=== PATIENT | female | born 1975 | race Caucasian/White ===

== ENCOUNTER 2018-03-17 01:34 | Emergency (ER) | payer MEDICAID, SELFPAY ==
[2018-03-17 01:36] VITALS: BP 106/80; PULSE 122; RESP 16; TEMP 37.9; O2SAT 99; BMI 28.5
[2018-03-17 01:44] VITALS: RESP 16
--- NOTE | 2018-03-17 02:02 | CT_ITS ---
STUDY: CT ABDOMEN AND PELVIS WITH CONTRAST REASON FOR EXAM: Female, 42 years old. Nausea, vomiting, diarrhea, and pain RADIATION DOSAGE (If Supplied By Facility): CTDIvol = ( 12.2 ) mGy, DLP = ( 755.07 ) mGycm TECHNIQUE: Transaxial images were obtained from the dome of the diaphragm to the symphysis pubis with oral contrast. 100 ml of Isovue 300 contrast was administered. Sagittal and coronal images were reconstructed. Oral contrast is seen in the gastric lumen, however, no oral contrast is seen within small or large bowel loops.. Individualized dose optimization techniques were used for this CT. COMPARISON: None. FINDINGS: The visualized lung bases are unremarkable. The visualized portions of the heart are within normal limits. Normal liver. Normal gallbladder and extrahepatic biliary system. Normal spleen. Normal pancreas. Normal bilateral adrenal glands. Normal right kidney. Normal left kidney. Normal visualized stomach. There is mural thickening of loops of proximal jejunum, which may represent an infectious or inflammatory enteritis. There is also dilatation of some loops of jejunum, with diameters ranging up to 3.2 cm. There is no demonstrated transition point or decompression of distal small bowel to suggest mechanical obstruction. This may represent a localized ileus. Normal colon. The appendix is visualized on axial images 78-91 and it appears normal.. Normal abdominal aorta. Normal inferior vena cava. Normal retroperitoneum. Normal urinary bladder. There are varices in the pelvis bilaterally, however, there is no demonstrated gonadal vein reflux. There is no abnormal dilatation of the iliac veins. Normal abdominal wall. Normal osseous structures. CT/Abdomen/Pelvis WITH Contrast IMPRESSION: Mural thickening of loops of jejunum as well as distention of some jejunal loops suggests an infectious or inflammatory enteritis with overlying ileus. No evidence for mechanical bowel obstruction. No evidence for diverticulitis or appendicitis. Electronically Signed: Harry Sigala MD at 5:12 EST , Service support ,
--- NOTE | 2018-03-17 02:03 | ED.VISSUMM ---
- ER Visit Summary Date of Service: 03/17/18 Chief Complaint: Abdominal pain History of Present Illness: The patient is a 42 F presenting with abdominal pain. Patient states that this started around 7 PM. She has had nausea, vomiting, diarrhea. She denies blood in her stool or emesis. She has a history of Jaleel's disease and celiac disease. She denies possibility of bad food exposure. History of previous . She has had a subjective fever. Physical Examination: Vitals are stable. Temperature 100.3, heart rate 122 Alert no acute distress. HEENT exam dry mucous membranes Neck is supple. Lungs are clear and equal bilaterally. Heart is regular and tachycardic Abdomen is soft right lower quadrant tenderness with no rebound or guarding Extremities are unremarkable. Skin is warm and dry. No focal neurologic deficit. Remainder of exam is unremarkable. Emergency Department Course and Treatment: Patient was given IV fluids, morphine, Zofran. CBC shows white count 12.1, chemistries unremarkable other than BUN 23. Liver lipase are normal. Urinalysis unremarkable. CT abdomen pelvis shows mural thickening of loops of jejunum as well as distention of some jejunal loops suggests an infectious or inflammatory enteritis with overlying ileus. No evidence for mechanical bowel obstruction. No evidence for diverticulitis or appendicitis. On reevaluation, patient is feeling improved. She was given Tylenol for fever. She is able to tolerate p.o. in the emergency department. She was given prescription for Zofran. She is advised to follow-up with her primary care physician. Advised return to ED for worsening complaints. Disposition: Discharge home Impression: Vomiting and diarrhea This note was generated with [employer] dictation software. It may contain incorrect words, spelling, and punctuation that were not noted in review of the chart prior to signing ED Disposition - Plan for ED Patient: Chief Complaint: Nausea/Vomiting/Diarrhea Referrals: Noelle Leo MD [Primary Care Provider] -
[2018-03-17] MEDS: 0.9% Normal Saline 1,000 ML 1000 ML IV (02:25)
[2018-03-17] MEDS: Ondansetron 4 MG/2 ML Vial IV (02:25)
[2018-03-17] MEDS: Morphine 4 MG/ML Syringe IV (02:27)
[2018-03-17 02:36] LABS: Absolute Lymphocyte Count 0.49 X10^3/ul (0.83-4.51); Absolute Neutrophil Count 10.9 X10^3/uL (2.0-7.7); Basophil# 0.02 X10^3/uL; Basophil% 0.2 % (0-1); Eosinophil# 0.06 X10^3/uL; Eosinophils% 0.5 % (0-5); Hematocrit 42.4 % (37-47); Hemoglobin 14.1 g/dl (12.0-15.0); Lymphocyte # 0.49 X10^3/ul (4.0); Mean Corp Hgb Conc 33.3 g/gl (32-36); Mean Corpuscular Hgb 29.7 pg (27.0-32.0); Mean Corpuscular Volume 89.3 fL (81-99); Mean Platelet Vol. 11.1 fl (6.2-12.0); Monocyte# 0.66 X10^3/uL; Monocyte% 5.4 % (0-10); Neutrophil # 10.88 X10^3/uL (2.7-7.7); Neutrophil % 89.7 % (47-70); Platelet Count 291 K/mm3 (150-450); RBC Distribution Width CV 13.3 % (11.6-14.6); RBC Distribution Width SD 43.6 fl (35.1-43.9); Red Blood Count 4.75 M/mm3 (4.2-5.4); White Blood Count 12.1 K/mm3 (4.4-11.0)
[2018-03-17 02:37] LABS: Differential Indicated SCAN CRITERIA MET; POSITIVE COUNT NO; POSITIVE DIFFERENTIAL YES; POSITIVE MORPHOLOGY NO
[2018-03-17 02:47] LABS: AST(SGOT) 24 U/L (15-37); Alanine Aminotransfer ALT/SGPT 25 U/L (13-56); Albumin, Serum 3.9 g/dL (3.2-5.0); Alkaline Phosphatase 83 U/L (45-117); Anion Gap 11 (5-15); BUN 23 mg/dL (7-18); BUN/Creat Ratio 24.9 RATIO (10-20); Bilirubin, Direct 0.13 mg/dL (0.00-0.30); Calcium,Total 8.3 mg/dL (8.5-10.1); Chloride 102 mmol/L (98-107); Creatinine, Serum 0.92 mg/dL (0.55-1.02); EST Glomerular Filtration Rate 70 mL/min (>60); Est Glom Filt Rate - Afr Amer 85 mL/min (>60); Estimated Creatinine Clearance 56.05 ml/min; Globulin 3.4 g/dL (2.2-4.2); Glucose 103 mg/dL (74-106); Lipase 148 U/L (73-393); Potassium 3.5 mmol/L (3.5-5.1); Protein, Total 7.3 g/dL (6.4-8.2); Sodium Level 137 mmol/L (136-145)
--- NOTE | 2018-03-17 03:32 | ED.RN ---
PATIENT VOMITED LARGE AMOUNT OF CLEAR FLUID SHORTLY AFTER FINISHING CT DRINK. DR LYNN AWARE. OKAY TO CONTINUE WITH CT SCAN.
[2018-03-17 04:17] VITALS: BP 109/66; PULSE 102; RESP 16; O2SAT 96
[2018-03-17 04:19] LABS: Mucous, Urine 0 SEEN /hpf (<or=2+); White Blood Cells 0 SEEN /hpf (0-5)
[2018-03-17 04:35] LABS: Color, Urine Yellow (Yellow); Glucose, Dipstick Normal (Normal); Ketone-Dipstick Negative (Negative); Leukocyte Esterase-Dipstick Negative /ul (Negative); Nitrite-Dipstick Negative (Negative); Occult Blood-Urine 10 /ul (Negative); Protein-Dipstick Negative (Negative); Specific Gravity, Urine 1.015 (1.002-1.030); Urine Bilirubin Dipstick Negative (Negative); Urine Clarity Clear (Clear); Urine Urobilinogen Normal (Normal)
[2018-03-17 04:38] LABS: Bacteria RARE /hpf (None Seen); Red Blood Cells-Urine 0-5 SEEN /hpf (0-5); Squamous Epithelial Cells - UA 0-5 SEEN /hpf (5-10)
[2018-03-17 05:08] VITALS: BP 113/66; PULSE 107; RESP 15; TEMP 38.6; O2SAT 100
[2018-03-17] MEDS: 0.9% Normal Saline 1,000 ML 999 ML IV (05:15)
[2018-03-17] MEDS: Acetaminophen 500 MG Tablet 1000 MG PO (05:15)
[2018-03-17 06:37] VITALS: BP 110/65; PULSE 118; RESP 22; TEMP 37.9; O2SAT 98
--- NOTE | 2018-03-17 06:40 | ED.DEP ---
ED Disposition - Plan for ED Patient: Chief Complaint: Nausea/Vomiting/Diarrhea Instructions: ED Vomiting Diarrhea Nonspecific Ad Prescriptions: Ondansetron [Zofran Odt] 4 mg PO Q8H PRN PRN #10 tablet PRN Reason: Nausea Referrals: Noelle Leo MD [Primary Care Provider] -
== END 2018-03-17 07:38 | disposition home or self-care (01) ==
LOC: ED 02:29
PROVIDERS: Emergency Provider Emergency Medicine; Family Provider Internal Medicine; PCP Internal Medicine
DX: R11.2 Nausea with vomiting, unspecified (principal); R19.7 Diarrhea, unspecified; E27.1 Primary adrenocortical insufficiency; K90.0 Celiac disease; Z79.52 Long term (current) use of systemic steroids; Z79.899 Other long term (current) drug therapy
CPT/HCPCS: 74177; 80048; 80076; 81001; 83690; 85025; 96361; 96374; 96375; 99283; J7030; Q9967; A4216; J2405

== ENCOUNTER 2018-08-19 04:11 | Emergency (ER) | payer MEDICAID, SELFPAY ==
[2018-08-19 04:12] VITALS: BP 134/86; PULSE 92; RESP 16; TEMP 37.1; O2SAT 99; BMI 27.5
[2018-08-19] MEDS: Ketorolac 60 MG/2 ML Vial IM (04:24)
[2018-08-19] MEDS: morphine 8 MG/ML Syringe IM (04:25)
--- NOTE | 2018-08-19 04:26 | ED.DCSUM_ITS ---
History of Present Illness Chief Complaint: Other, Pain/Inj Informant: Patient, Significant Other Narrative: Stated she is having a radiculopathy in her neck. 2 days ago she slept on a pillow in a hotel and started having pain in the back of her neck radiating down the left side of her tricep. Occasionally she gets some tingling. She is never had this before. No injury. Movement related. Hurts to move her neck to the side. She is been using NSAIDs. She saw the chiropractor yesterday and had x- ray of her neck which she reported he stated she had beginning of degenerative disc disease. The patient stated there was no injury to her neck. She denies any anterior neck pain. It is difficult to get comfortable. Comes in for further treatment and evaluation. Past Medical History - Allergies and Home Meds Allergies/Adverse Reactions: Allergies CELIACS Adverse Reaction (Uncoded 08/19/18 04:18) Other Primary Care Physician: Noelle Leo MD [Primary Care Provider] - Prior records reviewed: Yes Past Medical History: - - Lakeland's disease Surgical History: - - Reviewed Lives: Spouse/ Significant Other Smoking Status: Never smoker Alcohol: None Drugs: None Review of Systems General: Denies: Chills, Fever, Sweats Eyes: Denies: Visual changes - bilaterally, Diplopia ENT: Denies: Rhinorrhea, Sore throat Cardiovascular: Denies: Chest pain, Palpitations Respiratory: Denies: Dyspnea, Cough, Dyspnea on exertion Gastrointestinal: Denies: Abdominal pain, Nausea, Vomiting, Diarrhea, Melena, Hematochezia Genitourinary: Denies: Dysuria, Hematuria, Frequency Musculoskeletal: Reports: Neck pain. Denies: Back pain, Extremity Pain Skin: Denies: Rash, Wounds Neurological: Reports: Parasthesia. Denies: Headache, Weakness, Numbness - Occasional paresthesia left tricep and arm Physical Exam Vital Signs/Narrative: Vital Signs Temp Pulse Resp BP Pulse Ox 08/19/18 04:12 98.8 F 92 16 134/86 H 99 General: Well nourished, Well developed, No Acute Distress Head: Normocephalic, Atraumatic Eyes: Perrl, EOMI ENT: Moist mucous membranes, No rhinorrhea Neck: Supple, - - To palpation diffuse posterior neck worse on the left. Decreased range of motion of neck secondary to pain. Cardiovascular: Regular rate, Regular rhythm, No murmurs Respiratory: No distress, CTA bilaterally, Chest nontender Abdomen: Soft, Nontender, Nondistended, Normal bowel sounds Back: Nontender, Normal Inspection Extremities: Nontender, No edema Skin: Normal color, No rash Neurological: Alert, Oriented x3, Cranial nerves II-XII grossly intact, Normal Strength, Normal Sensation Psychological: Normal affect, Normal Mood Diagnostic/Tx/Re-eval - Medical Decision Making At this time I think the patient has a cervical radiculopathy. Given a shot of morphine Toradol and Norflex. Given Flexeril and [place] for home. She will rest and ice and use warm heat and try some gentle stretching and massage. I do not feel she needs acute imaging studies. She is on prednisone for Lakeland's disease. This should help as well. She will follow-up as an outpatient. ED Disposition - Plan for ED Patient: Disposition: Home or Assisted Living Diagnosis: Cervical radiculopathy Instructions: ED Cervical Radiculopathy Prescriptions: Hydrocodone Bitart/Apap 5-325 [[place] 5MG-325MG] 1 - 2 tab PO Q6H PRN PRN 3 Days #10 tab PRN Reason: Pain Cyclobenzaprine [Flexeril] 10 mg PO TID PRN #20 tab PRN Reason: Muscle Spasm Referrals: Noelle Leo MD [Primary Care Provider] -
[2018-08-19] MEDS: Orphenadrine 60 MG/2 ML Ampul IM (05:09)
[2018-08-19] MEDS: HYDROmorphone 1 MG/ML Syringe IM (05:35)
--- NOTE | 2018-08-19 05:42 | ED.RN ---
DR. GIRALDO WAS MADE AWARE THAT PATIENT WAS STILL HAVING EXTREME PAIN. HE ORDERED A 1 MG OF DILAUDID. HE ALSO SAID IT WAS OK TO GIVE PATIENT THE SHOT WITH HER BP OF 107/63. DILAUDID IM GIVEN IN RIGHT DELTOID.
[2018-08-19 05:44] VITALS: BP 107/63; PULSE 73; RESP 18; O2SAT 98
[2018-08-19] MEDS: Ondansetron ODT 4 MG Tablet 8 MG PO (06:53)
[2018-08-19 07:05] VITALS: BP 110/62; PULSE 71; RESP 16; O2SAT 98
== END 2018-08-19 07:08 | disposition home or self-care (01) ==
PROVIDERS: Emergency Provider Emergency Medicine; Family Provider Internal Medicine; PCP Internal Medicine
DX: M54.12 Radiculopathy, cervical region (principal)
CPT/HCPCS: 96372; 99283